=== PATIENT | female | born 1960 | race Caucasian/White ===

== ENCOUNTER 2021-01-09 14:36 | Emergency (ER) | payer OTHER ==
[~2021-01-09] VITALS: Ht 162.6 cm; Wt 76.7 kg
[2021-01-09 14:48] VITALS: BP 136/71
[2021-01-09] MEDS ORDERED: KETOROLAC 60 MG/2 ML VIAL IM ONE (15:30)
--- NOTE | 2021-01-09 15:40 | NUR ---
60 YEAR OLD FEMALE COMPLAINS OF LEFT LEG PAIN X TODAY. PT STATES SHE HAD SURGERY ON LEG 3 WEEKS AGO AND FELL RECENTLY. PT AOX4, BREATHING EVEN AND UNLABORED, SKIN WARM AND DRY. BED IN LOWEST POSITION, LOCKED, BED RAIL UPX1. PMH - HTN, DM2, HLD ALLERGIES - NKA
[2021-01-09] MEDS ORDERED: NAPR-54 PO (16:09)
[2021-01-09] MEDS ORDERED: CEPH-588 PO (16:09)
[2021-01-09 16:29] VITALS: BP 136/71
--- NOTE | 2021-01-09 16:30 | NUR ---
Patient discharged with v/s stable. Written and verbal after care instructions about cellulitis, contusion given and explained. Patient alert, oriented and verbalized understanding of instructions. Ambulatory with steady gait. All questions addressed prior to discharge. ID band removed. Patient advised to follow up with PMD. Rx of keflex, naprosyn given. Patient educated on indication of medication including possible reaction and side effects. Opportunity to ask questions provided and answered.
== END 2021-01-09 16:30 | disposition home or self-care (01) ==
LOC: MED 14:36
DX: S80.12XA Contusion of left lower leg, initial encounter (principal); L03.116 Cellulitis of left lower limb; W19.XXXA Unspecified fall, initial encounter; Y93.89 Activity, other specified; Y92.89 Other specified places as the place of occurrence of the external cause; Y99.8 Other external cause status
CPT/HCPCS: 73590; 96372; 99283; J1885

== ENCOUNTER 2021-03-29 11:45 | Emergency (ER) | payer OTHER ==
[~2021-03-29] VITALS: Ht 167.6 cm; Wt 75.3 kg
[~2021-03-29 11:45] MED LIST: CEPH-588 PO; NAPR-54 PO
[2021-03-29 11:51] VITALS: BP 139/78
--- NOTE | 2021-03-29 11:55 | NUR ---
PT TO WAIT IN LOBBY.
[2021-03-29] MEDS ORDERED: NITROGLYCERIN 0.4 MG TAB SL STA (12:28)
[2021-03-29] MEDS ORDERED: SODIUM CHLORIDE FLUSH 10 ML SYR IVF STA (12:28)
[2021-03-29] MEDS ORDERED: NACL 0.9% 1,000 ML IV ONE (12:50)
[2021-03-29 12:54] LABS: BASOPHILS % (AUTO) 0.2 % (0.0-2.0); EOSINOPHILS # (AUTO) 0.2 K/uL (0-0.4); EOSINOPHILS % (AUTO) 2.8 % (0.0-4.0); HEMATOCRIT 36.4 % (36-48); HEMOGLOBIN 12.5 g/dL (12.0-16.0); LYMPHOCYTES # (AUTO) 1.3 K/uL (2.5-16.5); LYMPHOCYTES % (AUTO) 24.4 % (20.5-51.1); MEAN CORPUSCULAR HEMOGLOBIN 29 pg (27-31); MEAN CORPUSCULAR HGB CONC 35 g/dL (33-37); MEAN CORPUSCULAR VOLUME 85.1 fL (80-94); MONOCYTES # (AUTO) 0.6 K/uL (0.8-1.0); MONOCYTES % (AUTO) 11.7 % (1.7-9.3); NEUTROPHILS # (AUTO) 3.3 K/uL (1.8-7.7); NEUTROPHILS % (AUTO) 60.9 % (42.2-75.2); PLATELET COUNT (AUTO) 409 K/uL (140-450); RED BLOOD CELL COUNT(AUTO) 4.27 MIL/uL (4.20-5.40); RED CELL DISTRIBUTION WIDTH 13.8 % (11.6-13.7); WHITE BLOOD COUNT (AUTO) 5.5 K/uL (4.8-10.8)
[2021-03-29 13:14] LABS: ALBUMIN 2.9 g/dL (3.4-5.0); ANION GAP 10.9 (8-16); CARBON DIOXIDE 28.2 mmol/L (21-32); POTASSIUM 5.1 mmol/L (3.5-5.1); TOTAL BILIRUBIN 0.3 mg/dL (0.0-1.0)
--- NOTE | 2021-03-29 13:32 | NUR ---
VBG COLLECTED AND HANDED TO RT BEDSIDE
--- NOTE | 2021-03-29 13:49 | NUR ---
CRITICAL LAB VALUE: GLUCOSE 607 DR. COREA MADE AWARE
[2021-03-29] MEDS ORDERED: INSULIN REGULAR, HUMAN 100 UNIT/ML VIAL IV ONE (15:10)
[2021-03-29 16:45] VITALS: BP 117/65
--- NOTE | 2021-03-29 16:45 | NUR ---
Patient discharged with v/s stable. Written and verbal after care instructions ABOUT HYPERGLYCEMIA given and explained. Patient verbalized understanding. Ambulatory with steady gait. All questions addressed prior to discharge. Advised to follow up with PMD.
== END 2021-03-29 16:45 | disposition home or self-care (01) ==
LOC: MED 11:45
DX: E11.65 Type 2 diabetes mellitus with hyperglycemia (principal); M79.89 Other specified soft tissue disorders; I10 Essential (primary) hypertension; Z79.899 Other long term (current) drug therapy
CPT/HCPCS: 36415; 71045; 80053; 81002; 82803; 83036; 83735; 83880; 84484; 85025; 93005; 96361; 96374; 99285; J1815; J7030; Q0092

== ENCOUNTER 2021-03-31 09:20 | Emergency (ER) | payer OTHER ==
[~2021-03-31] VITALS: Ht 162.6 cm; Wt 73.9 kg
[2021-03-31 09:50] VITALS: BP 147/82
--- NOTE | 2021-03-31 10:12 | NUR ---
60/F BIB SELF WITH C/O HIGH BLOOD SUGAR. STATES SHE IS NOT COMPLIANT WITH HER DIABETES MEDICATION, AND HER BLOOD SUGAR WAS "TOO HIGH TO READ AT HOME." GENERAL WEAKNESS, LIGHT HEADNESS AND FATIGUE SINCE THIS MORNING. DENIES CP, FEVER OR CHILLS. PT STATED LAST NIGHT SHE FELT FINE AND WOKE UP FEELING ILL THIS AM. BREATH SOUNDS CLEAR BILATERALLY WITH UNLABORED RESPIRATIONS AND EQUAL CHEST RISE AND FALL. MEDHX: DM, HTN, CHOLESTEROL ALLERGIES: PENICILLINS, SULFA, RESPERIDOL,CYMBALTA
[2021-03-31] MEDS ORDERED: NACL 0.9% 1,000 ML IV ONE (10:20)
--- NOTE | 2021-03-31 10:24 | NUR ---
20 G IV ESTABLISHED IN L AC. BLOOD WORK COLLECTED FROM IV
--- NOTE | 2021-03-31 10:27 | NUR ---
PT PROVIDED WITH URINE CUP. PT AMBUALTED TO RESTROOM
--- NOTE | 2021-03-31 10:38 | NUR ---
URINE COLLECTED BEDSIDE AND HANDED TO PERSONAL PROTECTION SPECIALIST MAREK
[2021-03-31 11:00] LABS: BASOPHILS % (AUTO) 0.4 % (0.0-2.0); EOSINOPHILS # (AUTO) 0.2 K/uL (0-0.4); EOSINOPHILS % (AUTO) 2.8 % (0.0-4.0); HEMATOCRIT 35.8 % (36-48); HEMOGLOBIN 12.2 g/dL (12.0-16.0); LYMPHOCYTES # (AUTO) 1.3 K/uL (2.5-16.5); LYMPHOCYTES % (AUTO) 23.4 % (20.5-51.1); MEAN CORPUSCULAR HEMOGLOBIN 29 pg (27-31); MEAN CORPUSCULAR HGB CONC 34 g/dL (33-37); MEAN CORPUSCULAR VOLUME 85.4 fL (80-94); MONOCYTES # (AUTO) 0.5 K/uL (0.8-1.0); NEUTROPHILS # (AUTO) 3.8 K/uL (1.8-7.7); NEUTROPHILS % (AUTO) 65.4 % (42.2-75.2); PLATELET COUNT (AUTO) 441 K/uL (140-450); RED BLOOD CELL COUNT(AUTO) 4.19 MIL/uL (4.20-5.40); RED CELL DISTRIBUTION WIDTH 13.8 % (11.6-13.7); WHITE BLOOD COUNT (AUTO) 5.7 K/uL (4.8-10.8)
[2021-03-31 11:02] LABS: ALBUMIN 2.6 g/dL (3.4-5.0); ANION GAP 15.2 (8-16); CARBON DIOXIDE 24.6 mmol/L (21-32); CREATININE 0.8 mg/dL (0.6-1.3); POTASSIUM 4.8 mmol/L (3.5-5.1); TOTAL BILIRUBIN 0.1 mg/dL (0.0-1.0)
[2021-03-31 11:23] LABS: APPEARANCE,URINE CLEAR (CLEAR); BILIRUBIN,URINE NEGATIVE (NEGATIVE); BLOOD, URINE NEGATIVE (NEGATIVE); COLOR,URINE YELLOW (YELLOW); LEUKOCYTE ESTERASE ,URINE NEGATIVE (NEGATIVE); NITRITE, URINE NEGATIVE (NEGATIVE); PH,URINE 5.5 (5.0-9.0); UGLUCOSE 2+ (NEGATIVE)
--- NOTE | 2021-03-31 11:40 | NUR ---
Patient appears to be resting comfortably in bed WITH EYES OPEN. Vital Signs within normal limits AND CHARTED. Respirations even and unlabored.
[2021-03-31] MEDS ORDERED: INSULIN REGULAR, HUMAN 100 UNIT/ML VIAL SUBQ ONE (11:45)
--- NOTE | 2021-03-31 11:50 | NUR ---
dr. herrera bedside evaluating pt
[2021-03-31] MEDS ORDERED: INSULIN REGULAR, HUMAN 100 UNIT/ML VIAL IVP ONE (12:15)
--- NOTE | 2021-03-31 13:04 | NUR ---
Patient appears to be resting comfortably in bed AND TALKING ON PHONE. Vital Signs within normal limits AND CHARTED. Respirations even and unlabored.
[2021-03-31 13:41] VITALS: BP 113/59
--- NOTE | 2021-03-31 13:41 | NUR ---
Patient discharged with v/s stable. Written and verbal after care instructions given and explained. Patient verbalized understanding. Ambulatory with steady gait. All questions addressed prior to discharge. Advised to follow up with PMD.
== END 2021-03-31 13:39 | disposition home or self-care (01) ==
LOC: MED 09:20
DX: E11.65 Type 2 diabetes mellitus with hyperglycemia (principal); R11.2 Nausea with vomiting, unspecified; I10 Essential (primary) hypertension; F15.90 Other stimulant use, unspecified, uncomplicated; F17.200 Nicotine dependence, unspecified, uncomplicated; Z88.0 Allergy status to penicillin; Z88.8 Allergy status to other drugs, medicaments and biological substances; Z79.899 Other long term (current) drug therapy; Z98.890 Other specified postprocedural states
CPT/HCPCS: 36415; 80053; 81003; 84484; 85025; 96361; 96374; 99283; J1815; J7030; 93005

== ENCOUNTER 2021-09-07 05:38 | Observation (INO) | payer OTHER ==
[~2021-09-07] VITALS: Ht 162.6 cm; Wt 73.9 kg
[2021-09-07 05:42] VITALS: BP 136/79
--- NOTE | 2021-09-07 05:42 | NUR ---
Dr. Aquino at triage to exam patient.
[2021-09-07] MEDS ORDERED: NACL 0.9% 1,000 ML IV ONE (05:45)
[2021-09-07] MEDS ORDERED: ONDANSETRON 4 MG/2 ML VIAL IVP ONE (05:45)
--- NOTE | 2021-09-07 05:47 | NUR ---
Patient ambulated to bed 11.
--- NOTE | 2021-09-07 05:49 | NUR ---
61 YO/F BIB SELF W C/O N/V/D X1 WEEK, +L SIDED CHEST PAIN TIGHTNESS 7/10 INTERMITENT X1 DAY,+ EPIGASTRIC PAIN AND DIZZYNESS. PT REPORTS SOB WHICH SHE RELATES TO HX OF SMOKING AND REPORTS IT IS NOT NEW. PT DENIES FEVERS, BLOOD IN STOOL OR EMESIS. PT LAYING IN BED LOCKED IN LOWEST POSITION, X1 SIDERAIL UP. BREATHING EVEN AND UNLABORED. PLACED IN GOWN, CONNECTED TO MONITOR W VSS. PMH:DIABETES, HTN, HIGH CHOLESTEROL ALLERGIES: SULFA, PENICILLIN, RISPERIDONE, DULOXETINE
[2021-09-07] MEDS ORDERED: LEVOFLOXACIN 500 MG/D5W PREMIX 100 ML IV ONE (05:55)
[2021-09-07 06:01] LABS: BASOPHILS % (AUTO) 0.5 % (0.0-2.0); EOSINOPHILS # (AUTO) 0.1 K/uL (0-0.4); EOSINOPHILS % (AUTO) 1.3 % (0.0-4.0); HEMOGLOBIN 14.4 g/dL (12.0-16.0); LYMPHOCYTES # (AUTO) 2.3 K/uL (2.5-16.5); LYMPHOCYTES % (AUTO) 33.5 % (20.5-51.1); MEAN CORPUSCULAR HEMOGLOBIN 29 pg (27-31); MEAN CORPUSCULAR HGB CONC 34 g/dL (33-37); MEAN CORPUSCULAR VOLUME 85.9 fL (80-94); MONOCYTES # (AUTO) 0.9 K/uL (0.8-1.0); MONOCYTES % (AUTO) 13.6 % (1.7-9.3); NEUTROPHILS # (AUTO) 3.6 K/uL (1.8-7.7); NEUTROPHILS % (AUTO) 51.1 % (42.2-75.2); PLATELET COUNT (AUTO) 444 K/uL (140-450); RED BLOOD CELL COUNT(AUTO) 5.01 MIL/uL (4.20-5.40); RED CELL DISTRIBUTION WIDTH 13.5 % (11.6-13.7)
[2021-09-07 06:22] LABS: ALBUMIN 3.8 g/dL (3.4-5.0); CARBON DIOXIDE 24.5 mmol/L (21-32); POTASSIUM 3.5 mmol/L (3.5-5.1); TOTAL BILIRUBIN 0.4 mg/dL (0.0-1.0)
--- NOTE | 2021-09-07 06:23 | NUR ---
Dr. Moscoso examining patient.
--- NOTE | 2021-09-07 06:39 | NUR ---
PT TAKEN TO CT
[2021-09-07] MEDS ORDERED: NACL 0.9% 1,500 ML IV ONE (06:40)
--- NOTE | 2021-09-07 06:42 | NUR ---
Med chand in [facility] - 09/07/21 at [address] PT [address] VIA WHEELCHAIR.
--- NOTE | 2021-09-07 06:57 | NUR ---
COVID-19 swabs collected and sent to lab.
[2021-09-07] MEDS ORDERED: OMEP40EC23 PO (07:10)
[2021-09-07] MEDS ORDERED: MAG (07:10)
[2021-09-07] MEDS ORDERED: VENL-151 PO (07:10)
[2021-09-07] MEDS ORDERED: SEMA0.25 SQ (07:10)
[2021-09-07] MEDS ORDERED: DIVA500T1 PO (07:10)
[2021-09-07] MEDS ORDERED: ATOR40TA PO (07:10)
[2021-09-07] MEDS ORDERED: FURO-572 PO (07:10)
[2021-09-07] MEDS ORDERED: INSU100S22 SC (07:10)
[2021-09-07] MEDS ORDERED: METF-1253 PO (07:10)
[2021-09-07] MEDS ORDERED: MAGNESIUM OXIDE (07:10)
[2021-09-07] MEDS ORDERED: LISI-487 PO (07:10)
[2021-09-07] MEDS ORDERED: INSU100S45 SUBQ (07:10)
--- NOTE | 2021-09-07 07:12 | NUR ---
Pt report given to SHELBY GARZA. Transfer of care at this time.
--- NOTE | 2021-09-07 07:30 | NUR ---
received pt in [facility] aox4. denies pain or discomfort. iv infusing fluids per order. nsr on monitor. pending admission. nad. safety maintained.
[2021-09-07] MEDS ORDERED: guaiFENesin DM 200/20 MG-10 ML 10 ML UDC PO PRN (08:25)
[2021-09-07] MEDS ORDERED: POTASSIUM CHLORIDE 10 MEQ TABER PO PRN (08:25)
[2021-09-07] MEDS ORDERED: ZOLPIDEM 5 MG TAB PO PRN (08:25)
[2021-09-07] MEDS ORDERED: HYDROcodone/APAP 7.5/325 MG 1 TAB PO PRN (08:25)
[2021-09-07] MEDS ORDERED: ONDANSETRON 4 MG/2 ML VIAL IM/IVP PRN (08:25)
[2021-09-07] MEDS ORDERED: DOCUSATE SODIUM 100 MG GELCAP PO PRN (08:25)
[2021-09-07] MEDS ORDERED: ACETAMINOPHEN 325 MG TAB PO PRN (08:25)
[2021-09-07] MEDS: DEXT 5% /NACL 0.9% 1,000 ML IV SCH ×4 (08:31→18:57)
[2021-09-07 08:56] LABS: AMYLASE 72 U/L (25-115); CHOL/HDL RATIO 3.6 (1-4.5); FREE T4 (FREE THYROXINE) 1.15 ng/dL (0.76-1.46); HDL CHOLESTEROL 50 mg/dL (40-60); LDL (CALC) 84 mg/dL (60-100); LIPASE 242 U/L (73-393); MAGNESIUM 1.3 mg/dL (1.8-2.4); PHOSPHORUS 4.5 mg/dL (2.5-4.9); TRIGLYCERIDES 243 mg/dL (30-150)
--- NOTE | 2021-09-07 08:56 | NUR ---
PATIENT HAS BEEN SCREENED AND CATEGORIZED HIGH NUTRITION RISK. PATIENT WILL BE SEEN WITHIN 1-2 DAYS OF ADMISSION. / J[address]
[2021-09-07 09:03] VITALS: BP 117/60
[2021-09-07 09:06] LABS: PROTHROMBIN TIME 9.7 secs (10.8-13.4)
--- NOTE | 2021-09-07 09:10 | NUR ---
patient ransported from er via gurney accompanied by nurse, bedside report received, patient alert and oriented, reports vomiting and diarrhea x 1 week, admitted with dx of dehydration, able to ambulate independently, lung sounds clear, no sob observed, no c/o pain or discomfort, will assume all care
[2021-09-07 09:21] LABS: THYROID STIMULATING HORMONE 2.42 uIU/mL (0.34-3.74)
[2021-09-07] MEDS: PANTOPRAZOLE 40 MG TABEC PO SCH (09:48)
--- NOTE | 2021-09-07 11:00 | NUR ---
blood sugar 186, routine lantus administered per emar
[2021-09-07] MEDS ORDERED: LOPERAMIDE 2 MG CAP PO PRN (11:35)
[2021-09-07 12:00] VITALS: BP 122/78
[2021-09-07] MEDS: MAGNESIUM OXIDE 400 MG TAB PO SCH (12:28)
[2021-09-07] MEDS: INSULIN LANTUS 100 UNITS/ML 10 ML VIAL SUBQ SCH (12:29)
--- NOTE | 2021-09-07 12:41 | NUR ---
DC PLANNING: RECEIVED A CALL FROM [facility] CM [phone] [phone] SPOKE WITH JAYA, UPDATED HER PT'S CLINICAL, PER JAYA PATIENT HAS A TEAM TO F/U WITH HER PSYCH DISORDER AND SHE PROVIDED THE OBSERVATION AUTH# [id number] CM TO FOLLOW
[2021-09-07 16:00] VITALS: BP 125/68
[2021-09-07] MEDS: metFORMIN 500 MG TAB PO SCH (17:37)
--- NOTE | 2021-09-07 18:06 | NUR ---
patient resting comfortably in bed, no c/o pain at this time, will endorse care to pm nurse
[2021-09-07 20:00] VITALS: BP 122/60
--- NOTE | 2021-09-07 20:00 | NUR ---
PT WALKS IN THE HALLWAY - WHEN I'M ASKING IF SHE NEEDED ANYTHING - SHE SAID SHE WANTS SOMETHING TO EAT . ASSIST PT GO BACK TO ROOM AND WILL PROVIDE FOOD .
[2021-09-07] MEDS ORDERED: NON-FORMULARY ITEM (Metformin HCl (Metformin Hcl) 1 TAB) PO SCH (21:00)
[2021-09-07] MEDS: NIACIN 500 MG TAB PO SCH (21:34)
--- NOTE | 2021-09-08 | NUR ---
MADE ROUNDS , NO COMPLAIN MADE .
[2021-09-08 04:00] VITALS: BP 125/60
--- NOTE | 2021-09-08 04:00 | NUR ---
ROUNDS , NO COMPLAIN MADE
[2021-09-08 04:28] LABS: APPEARANCE,URINE CLEAR (CLEAR); BILIRUBIN,URINE NEGATIVE (NEGATIVE); BLOOD, URINE NEGATIVE (NEGATIVE); COLOR,URINE YELLOW (YELLOW); LEUKOCYTE ESTERASE ,URINE NEGATIVE (NEGATIVE); NITRITE, URINE NEGATIVE (NEGATIVE); UGLUCOSE NEGATIVE (NEGATIVE)
[2021-09-08 04:48] LABS: BARBITURATE, URINE NEGATIVE ng/ml (NEG <=200); BENZODIAZEPINE, URINE NEGATIVE ng/mL (NEG <=200); CANNABINOID, URINE NEGATIVE ng/mL (NEG <=50); COCAINE, URINE NEGATIVE ng/mL (NEG <=300); PHENCYCLIDINE SCREEN,URINE NEGATIVE ng/mL (NEG <=25)
[2021-09-08 04:49] LABS: OPIATE, URINE POSITIVE ng/mL (NEG <=2000)
--- NOTE | 2021-09-08 06:00 | NUR ---
ROUNDS , SLEEPING , BUT EASILY AWAKEABLE BY SOUNDS , CALL LIGHT WITHIN REACH .
[2021-09-08 07:04] LABS: BASOPHILS % (AUTO) 0.5 % (0.0-2.0); EOSINOPHILS # (AUTO) 0.1 K/uL (0-0.4); EOSINOPHILS % (AUTO) 3.1 % (0.0-4.0); HEMATOCRIT 34.3 % (36-48); HEMOGLOBIN 11.6 g/dL (12.0-16.0); LYMPHOCYTES # (AUTO) 1.1 K/uL (2.5-16.5); LYMPHOCYTES % (AUTO) 32.8 % (20.5-51.1); MEAN CORPUSCULAR HEMOGLOBIN 29 pg (27-31); MEAN CORPUSCULAR HGB CONC 34 g/dL (33-37); MEAN CORPUSCULAR VOLUME 85.1 fL (80-94); MONOCYTES # (AUTO) 0.6 K/uL (0.8-1.0); MONOCYTES % (AUTO) 16.9 % (1.7-9.3); NEUTROPHILS # (AUTO) 1.6 K/uL (1.8-7.7); NEUTROPHILS % (AUTO) 46.7 % (42.2-75.2); PLATELET COUNT (AUTO) 295 K/uL (140-450); RED BLOOD CELL COUNT(AUTO) 4.03 MIL/uL (4.20-5.40); RED CELL DISTRIBUTION WIDTH 13.3 % (11.6-13.7); WHITE BLOOD COUNT (AUTO) 3.5 K/uL (4.8-10.8)
--- NOTE | 2021-09-08 07:10 | NUR ---
ENDORSED -PT STABLE . ENDORSED PT IS FOR 24 HR URINE COLLECTION - IT STARTED AT 0404AM . NYA HALL VERBALIZES UNDERSTANDING - AND I TOLD THEM TO REMIND THE DR DURING ROUNDS ABOUT THE U/A RESULT . NYA PATEL - REVIEWED THE DOCTOR'S ORDER - NO BS MONITORING - WILL REFER TO DR. BOWSER . Addendum: 09/08/21 at 0813 by Christie Nunez RN REFERRED TO DR. BOWSER ABOUT BS MONITORING VIA TEXT - I TOLD TO NYA TEJADA SHE HAVE TO FF UP IT IF DR. BOWSER MADE FURTHER ORDERS - NYA TEJADA VERBALIZES UNDERSTANDING
--- NOTE | 2021-09-08 07:10 | NUR ---
RECEIVED PT FROM BOTTLE SORTER NURSE FOR CONTINUITY OF CARE. PT IS IN BED, SLEEPING EASILY AROUSABLE BY VERBAL STIMULI. BREATHING EVEN AND UNLABORED AT ROOM AIR. NO SIGNS OF DISTRESS. PT IS A&O4. SKIN IS INTACT, DRY AND WARM TO TOUCH. IV SITE L-WRIST 20G INFUSING NS 60ML/HR. PT ON CLEAR LIQUID DIET. TO CONTINUE 24-HR URINE COLLECTION, TO COLLECT STOOL SAMPLE. INFORMED PT, PROVIDED SUPPLIES. PT VERBALIZES UNDERSTANDING. CALL LIGHT WITHIN REACH. SAFETY PRECAUTIONS IN PLACE. WILL CONTINUE TO MONITOR.
[2021-09-08 07:26] LABS: ANION GAP 12.3 (8-16); CARBON DIOXIDE 25.2 mmol/L (21-32); CREATININE 0.7 mg/dL (0.6-1.3); POTASSIUM 3.5 mmol/L (3.5-5.1)
[2021-09-08] MEDS ORDERED: INSULIN LISPRO SLIDING SCALE 100 UNITS/ML VIAL SUBQ PRN (07:45)
[2021-09-08] MEDS ORDERED: DEXTROSE 50% 50 ML SYR IVP PRN (07:45)
[2021-09-08 08:08] LABS: T4 (THYROXINE) 12.2 ug/dL (4.5-12.0)
[2021-09-08] MEDS: metFORMIN 500 MG TAB PO SCH (08:44)
[2021-09-08] MEDS: PANTOPRAZOLE 40 MG TABEC PO SCH (08:47)
[2021-09-08] MEDS: NIACIN 500 MG TAB PO SCH (08:47)
[2021-09-08] MEDS: MAGNESIUM OXIDE 400 MG TAB PO SCH (08:50)
--- NOTE | 2021-09-08 08:51 | NUR ---
PATIENT ALERT NO DISTRESS ATE BREAKFAST. GIVEN ALL DUE MEDICATION. CALM AND COOPERATIVE AT THIS TIME.
[2021-09-08] MEDS: INSULIN LANTUS 100 UNITS/ML 10 ML VIAL SUBQ SCH (08:53)
[2021-09-08] MEDS ORDERED: FUROSEMIDE 20 MG TAB PO SCH (09:00)
[2021-09-08] MEDS ORDERED: lisinopriL 20 MG TAB PO SCH (09:00)
[2021-09-08] MEDS ORDERED: VENLAFAXINE XR 75 MG CAPER PO SCH (09:00)
[2021-09-08] MEDS ORDERED: ATORVASTATIN 20 MG TAB PO SCH (09:00)
[2021-09-08] MEDS ORDERED: NON-FORMULARY ITEM (Omeprazole* (Prilosec*) 40 MG) PO SCH (09:00)
[2021-09-08] MEDS ORDERED: DIVALPROEX 500 MG TABER PO SCH (09:00)
[2021-09-08] MEDS ORDERED: [UNRECOGNIZED DRUG - CODE] PO (09:02)
[2021-09-08] MEDS ORDERED: LEVO-315 PO (09:02)
[2021-09-08] MEDS ORDERED: LOPE1TAB14 PO (09:04)
[2021-09-08] MEDS: DEXT 5% /NACL 0.9% 1,000 ML IV SCH (09:15)
--- NOTE | 2021-09-08 10:30 | NUR ---
INFORM PATIENT THAT SHE HAS DISCHARGE ORDER. PATIENT REQUESTED FOR SNACKS GIVEN REQUESTED. NO NAUSEA OR VOMITING NOTED. IV RUNNING AT 60 ML /HOUR TOLERATED WELL.
[2021-09-08 11:04] VITALS: BP 136/76
[2021-09-08] MEDS ORDERED: BLOOD GLUCOSE MONITORING 1 DEV DEV FS SCH (11:30)
--- NOTE | 2021-09-08 11:30 | NUR ---
PT IS IN BED DRESSED UP, READY TO GO HOME. DISCHARGE PAPER DISCUSSED WITH THE PT. PT ASKED QUESTIONS. EXPLAINED BRIEFLY WHAT'S ON THE DISCHARGE PAPER. PT VERBALIZED UNDERSTANDING. REMOVED IV CATHETER IS INTACT. ID WRIST BAND REMOVED. ALL BELONGINGS WITH THE PT UPON DC. PT IS ALERT WITH STEADY GAIT. WALKED OUT THE UNIT STABLE. REFUSED TO BE ACCOMPANIED OUTSIDE.
[2021-09-09] MEDS ORDERED: LEVOFLOXACIN 750 MG/D5W PREMIX 150 ML IV SCH (09:00)
== END 2021-09-08 11:30 | disposition home or self-care (01) ==
LOC: MED 05:38 → MTU 08:18
PROVIDERS: ADMIT Family Medicine; ATTEND Family Medicine
DX: K92.9 Disease of digestive system, unspecified (principal); Z20.822 Contact with and (suspected) exposure to COVID-19; R19.7 Diarrhea, unspecified; R11.2 Nausea with vomiting, unspecified; R79.89 Other specified abnormal findings of blood chemistry; E86.0 Dehydration; E78.5 Hyperlipidemia, unspecified; F31.81 Bipolar II disorder; R74.02 Elevation of levels of lactic acid dehydrogenase [LDH]; I12.9 Hypertensive chronic kidney disease with stage 1 through stage 4 chronic kidney disease, or unspecified chronic kidney disease; E11.22 Type 2 diabetes mellitus with diabetic chronic kidney disease; N18.9 Chronic kidney disease, unspecified; N17.0 Acute kidney failure with tubular necrosis; E78.00 Pure hypercholesterolemia, unspecified; Z87.891 Personal history of nicotine dependence; Z88.0 Allergy status to penicillin; Z79.899 Other long term (current) drug therapy
CPT/HCPCS: 36415; 71045; 74176; 76770; 80048; 80053; 80061; 80305; 81003; 82150; 82948; 83036; 83605; 83690; 83735; 83880; 84100; 84436; 84439; 84443; 84479; 84484; 85025; 85610; 85730; 87040; 87081; 87426; 96361; 96365; 96375; 99284; G0378; J1815; J1956; J2405; J7030; Q0092

== ENCOUNTER 2021-12-22 12:01 | Emergency (ER) | payer OTHER ==
[~2021-12-22] VITALS: Ht 162.6 cm; Wt 67.1 kg
[~2021-12-22 12:01] MED LIST changes: +ATOR40TA PO; -CEPH-588 PO; +DIVA500T1 PO; +FURO-572 PO; +INSU100S22 SC; +INSU100S45 SUBQ; +LEVO-315 PO; +LISI-487 PO; +LOPE1TAB14 PO; +MAG; +MAGNESIUM OXIDE; +METF-1253 PO; -NAPR-54 PO; +OMEP40EC23 PO; +SEMA0.25 SQ; +VENL-151 PO; +[UNRECOGNIZED DRUG - CODE] PO
[2021-12-22 12:22] VITALS: BP 97/62
--- NOTE | 2021-12-22 12:29 | NUR ---
PT TO LOBBY. Addendum: 12/22/21 at 1229 by [email or web address] IN W/C.
--- NOTE | 2021-12-22 12:31 | NUR ---
61 Y/O FEMALE C/O PELVIC PAIN X1DAY WITH WEAKNESS AND DIZZINESS. ACCUE CHECK 186 AT TRIAGE. STATES +N/V/D. DENIES FEVER/CHILLS. PMH:DIABETES, HTN, HIGH CHOLESTEROL ALLERGIES: SULFA, PENICILLIN, RISPERIDONE, DULOXETINE
--- NOTE | 2021-12-22 12:31 | NUR ---
PT STATES SHE IS UNABLE TO PROVIDE UA AT THIS TIME.
[2021-12-22 14:35] LABS: ALBUMIN 3.4 g/dL (3.4-5.0); ANION GAP 16.4 (8-16); ASPARTATE AMINOTRANSFERASE 13 U/L (15-37); CARBON DIOXIDE 27.4 mmol/L (21-32); CHLORIDE 98 mmol/L (98-107); GFR ARICAN-AMERICAN 72 mL/min (>90); GLUCOSE 170 mg/dL (74-106); LIPASE 477 U/L (73-393); MAGNESIUM 1.1 mg/dL (1.8-2.4); POTASSIUM 3.8 mmol/L (3.5-5.1); SODIUM SERUM 138 mmol/L (136-145); TOTAL BILIRUBIN 0.4 mg/dL (0.0-1.0); UREA NITROGEN, BLOOD 20 mg/dL (7-18)
[2021-12-22 15:48] LABS: BASOPHILS # (AUTO) 0.1 K/uL (0.00-0.22); BASOPHILS % (AUTO) 0.4 % (0.0-2.0); EOSINOPHILS # (AUTO) 0.1 K/uL (0-0.4); EOSINOPHILS % (AUTO) 0.6 % (0.0-4.0); HEMATOCRIT 43.2 % (36-48); HEMOGLOBIN 14.2 g/dL (12.0-16.0); LYMPHOCYTES # (AUTO) 1.2 K/uL (2.5-16.5); LYMPHOCYTES % (AUTO) 8.2 % (20.5-51.1); MEAN CORPUSCULAR HEMOGLOBIN 27 pg (27-31); MEAN CORPUSCULAR HGB CONC 33 g/dL (33-37); MEAN CORPUSCULAR VOLUME 83.2 fL (80-94); MONOCYTES # (AUTO) 0.6 K/uL (0.8-1.0); MONOCYTES % (AUTO) 3.7 % (1.7-9.3); NEUTROPHILS # (AUTO) 13.1 K/uL (1.8-7.7); NEUTROPHILS % (AUTO) 87.1 % (42.2-75.2); PLATELET COUNT (AUTO) 631 K/uL (140-450); RED BLOOD CELL COUNT(AUTO) 5.19 MIL/uL (4.20-5.40); RED CELL DISTRIBUTION WIDTH 13.9 % (11.6-13.7)
--- NOTE | 2021-12-22 19:42 | NUR ---
PATIENT ELOPED FROM FACILITY. DISCHARGE INSTRUCTIONS NOT GIVEN TO PATIENT. DR. GRAY NOTIFIED.
== END 2021-12-22 19:42 | disposition left against medical advice (07) ==
LOC: MED 12:01
DX: C80.0 Disseminated malignant neoplasm, unspecified (principal); E83.52 Hypercalcemia; E83.42 Hypomagnesemia; E78.5 Hyperlipidemia, unspecified; D72.829 Elevated white blood cell count, unspecified; D75.839 Thrombocytosis, unspecified; E11.9 Type 2 diabetes mellitus without complications; I10 Essential (primary) hypertension; F17.290 Nicotine dependence, other tobacco product, uncomplicated; Z79.899 Other long term (current) drug therapy; Z79.4 Long term (current) use of insulin; Z88.0 Allergy status to penicillin; Z88.8 Allergy status to other drugs, medicaments and biological substances; Z98.890 Other specified postprocedural states
CPT/HCPCS: 36415; 80053; 82948; 83690; 83735; 84484; 85025; 93005; 99285

== ENCOUNTER 2021-12-25 12:27 | Emergency (ER) | payer OTHER ==
[~2021-12-25] VITALS: Ht 162.6 cm; Wt 67.6 kg
[2021-12-25 12:41] VITALS: BP 122/65
--- NOTE | 2021-12-25 12:46 | NUR ---
pt to sivakumar britt
--- NOTE | 2021-12-25 14:47 | NUR ---
AURY SAMPLE OBTAINED, HANDED TO CPT SUSHMA AT BEDSIDE.
--- NOTE | 2021-12-25 15:16 | NUR ---
UA SENT TO LAB
[2021-12-25 15:28] LABS: APPEARANCE,URINE CLEAR (CLEAR); BILIRUBIN,URINE NEGATIVE (NEGATIVE); BLOOD, URINE NEGATIVE (NEGATIVE); COLOR,URINE BROWN (YELLOW); LEUKOCYTE ESTERASE ,URINE NEGATIVE (NEGATIVE); NITRITE, URINE NEGATIVE (NEGATIVE); UGLUCOSE NEGATIVE (NEGATIVE)
--- NOTE | 2021-12-25 16:25 | NUR ---
Dr. Gomez re-evaluating patient at bedside.
[2021-12-25 17:00] VITALS: BP 120/67
--- NOTE | 2021-12-25 19:15 | NUR ---
REPORT GIVEN TO SHELBY MAHMOOD FOR TRANSFER OF CARE.
--- NOTE | 2021-12-25 21:55 | NUR ---
WALKED INTO NURSES STATION AND SAID "I'M LEAVING" WALKED OUT OF ER
[2021-12-26] MEDS ORDERED: FAMO-92 PO (12:28)
== END 2021-12-25 21:55 | disposition left against medical advice (07) ==
LOC: MED 12:27
DX: C80.0 Disseminated malignant neoplasm, unspecified (principal); Z20.822 Contact with and (suspected) exposure to COVID-19; R10.9 Unspecified abdominal pain; E11.9 Type 2 diabetes mellitus without complications; I10 Essential (primary) hypertension; E78.00 Pure hypercholesterolemia, unspecified; Z79.4 Long term (current) use of insulin; Z79.899 Other long term (current) drug therapy; Z88.0 Allergy status to penicillin; Z88.2 Allergy status to sulfonamides; Z88.8 Allergy status to other drugs, medicaments and biological substances; Z88.5 Allergy status to narcotic agent
CPT/HCPCS: 81003; 99285

== ENCOUNTER 2021-12-26 10:38 | Emergency (ER) | payer OTHER ==
[~2021-12-26] VITALS: Ht 162.6 cm; Wt 67.6 kg
[2021-12-26 10:49] VITALS: BP 139/81
--- NOTE | 2021-12-26 11:50 | NUR ---
PT AMBULATED WITH STEADY GAIT TO BED12
--- NOTE | 2021-12-26 12:20 | NUR ---
61 Y/O FEMALE C/O DIZZY SPELLS X2 THAT STARTED LAST NIGHT. DENIES HEADACHE, VISUAL CHANGES, PAIN, FEVER, NVD. DENIES TAKING NEW MEDICATION. STATES SHE WAS SEEN AT [facility] YESTERDAY AND BECAME "IMPATIENT AND LEFT AMA". STATES SHE HAS AN APPT WITH PCP FOR FURTHER EVALUATION ON THE , TRUSS DESIGNER STATED APPT IS TOO LATE AND SUGGESTED PT RETURN TO ER FOR A RECHECK.
--- NOTE | 2021-12-26 12:23 | NUR ---
RAUL THIBODEAUX AT BEDSIDE FOR EVALUATION
[2021-12-26] MEDS ORDERED: FAMO-92 PO (12:28)
[2021-12-26 12:35] VITALS: BP 130/75
== END 2021-12-26 12:35 | disposition home or self-care (01) ==
LOC: MED 10:38
DX: K21.9 Gastro-esophageal reflux disease without esophagitis (principal); E11.9 Type 2 diabetes mellitus without complications; E78.00 Pure hypercholesterolemia, unspecified; I10 Essential (primary) hypertension; Z79.4 Long term (current) use of insulin; Z79.899 Other long term (current) drug therapy; Z88.0 Allergy status to penicillin; Z88.2 Allergy status to sulfonamides; Z88.8 Allergy status to other drugs, medicaments and biological substances; Z88.5 Allergy status to narcotic agent
CPT/HCPCS: 99281

== ENCOUNTER 2022-04-18 12:46 | Inpatient (IN) | payer OTHER, MEDICAID ==
[~2022-04-18] VITALS: Ht 162.6 cm; Wt 58.5 kg
[~2022-04-18 12:46] MED LIST changes: +FAMO-92 PO; -LEVO-315 PO; +LEVO-481 PO
--- NOTE | 2022-04-18 12:48 | NUR ---
BRIGITTE ALS TO ER BED 9
--- NOTE | 2022-04-18 12:55 | NUR ---
COVID SWAB COLLECTED
[2022-04-18 13:00] VITALS: BP 108/57
--- NOTE | 2022-04-18 13:05 | NUR ---
61F BIBA from home presents with c/o dizziness, n/v/d, weakness, abd pain x2days. Pt reports symptoms have worsened in the last two days, unable to support own bodyweight to ambulate. Pt reports having 3 episodes of diarrhea today, LLQ ABD pain only when needing to have a BM, and relieved after BM. Pt reports no episodes of vomiting today. Pt states she was given zofran for nausea by EMS with relief. Upon assessment, denies ABD pain, denies nausea. Pt changed into gown and placed on bedside monitor.
[2022-04-18] MEDS ORDERED: NACL 0.9% 1,000 ML IV ONE ×2 (13:20→22:40)
[2022-04-18 14:02] LABS: BASOPHILS # (AUTO) 0.1 K/uL (0.00-0.22); BASOPHILS % (AUTO) 0.6 % (0.0-2.0); EOSINOPHILS # (AUTO) 0.1 K/uL (0-0.4); LYMPHOCYTES # (AUTO) 0.5 K/uL (2.5-16.5); MONOCYTES # (AUTO) 0.1 K/uL (0.8-1.0); MONOCYTES % (AUTO) 0.6 % (1.7-9.3); NEUTROPHILS # (AUTO) 11.1 K/uL (1.8-7.7)
[2022-04-18 14:06] LABS: EOSINOPHILS % (AUTO) 0.5 % (0.0-4.0); LYMPHOCYTES % (AUTO) 4.5 % (20.5-51.1); MEAN CORPUSCULAR HEMOGLOBIN 25 pg (27-31); MEAN CORPUSCULAR HGB CONC 32 g/dL (33-37); MEAN CORPUSCULAR VOLUME 79.9 fL (80-94); NEUTROPHILS % (AUTO) 93.8 % (42.2-75.2); PLATELET COUNT (AUTO) 418 K/uL (140-450); WHITE BLOOD COUNT (AUTO) 11.9 K/uL (4.8-10.8)
[2022-04-18 14:13] LABS: ALBUMIN 2.1 g/dL (3.4-5.0); ANION GAP 14.7 (8-16); CARBON DIOXIDE 26.1 mmol/L (21-32); CREATININE 0.8 mg/dL (0.6-1.3); POTASSIUM 4.8 mmol/L (3.5-5.1); TOTAL BILIRUBIN 0.2 mg/dL (0.0-1.0)
[2022-04-18 14:18] LABS: PROTHROMBIN TIME 10.1 secs (10.8-13.4)
[2022-04-18 14:20] LABS: HEMATOCRIT 19.2 % (36-48); HEMOGLOBIN 6.1 g/dL (12.0-16.0)
[2022-04-18] MEDS ORDERED: PANTOPRAZOLE 40 MG INJ VIAL IVP ONE (15:30)
[2022-04-18] MEDS ORDERED: cefTRIAXone 1,000 MG VIAL ONE (15:50)
--- NOTE | 2022-04-18 19:29 | NUR ---
[facility] [phone] SISTER
--- NOTE | 2022-04-18 20:50 | NUR ---
Assisted patient to the restroom. UA collected. Gown changed and patient placed on a breif. Call light within reach. Currently resting with eyes closed.
[2022-04-18 21:49] LABS: APPEARANCE,URINE HAZY (CLEAR); BILIRUBIN,URINE NEGATIVE (NEGATIVE); BLOOD, URINE NEGATIVE (NEGATIVE); COLOR,URINE YELLOW (YELLOW); LEUKOCYTE ESTERASE ,URINE 2+ (NEGATIVE); NITRITE, URINE NEGATIVE (NEGATIVE); UGLUCOSE NEGATIVE (NEGATIVE)
[2022-04-18 22:05] LABS: HEMATOCRIT 19.2 % (36-48); HEMOGLOBIN 6.4 g/dL (12.0-16.0)
[2022-04-18 22:07] LABS: RBC,URINE NONE SEEN /HPF (0-5)
--- NOTE | 2022-04-18 22:20 | NUR ---
received critical lab. Hbg 6.4, Hct 19.2, ERMD Zeinab made aware. Stated to tranfuse second unit of blood. Blood tranfusion initiated. See blood transfer paperwork for details. patient tolerated well.
--- NOTE | 2022-04-19 04:30 | NUR ---
PATIENT CHANGED AND REPOSITIONED. PATIENT AAOX4.
[2022-04-19] MEDS ORDERED: PANTOPRAZOLE 40 MG INJ VIAL IVP SCH (05:00)
--- NOTE | 2022-04-19 05:53 | NUR ---
SPOKE TO PT SISTER JOHANN AND GAVE UPDATE ON PATIENTS STATUS. WOULD LIKE TO BE INFORMED WHEN TRANSPORTATION IS SCHEDULED.
--- NOTE | 2022-04-19 07:15 | NUR ---
Received report from SHELBY Das. Assumed care at this time.
--- NOTE | 2022-04-19 07:15 | NUR ---
REPORT GIVEN TO SHELBY MCLAUGHLIN. TRANSFER OF CARE.
--- NOTE | 2022-04-19 11:47 | NUR ---
Pt resting in [place], no acute distress noted. Safety maintained.
[2022-04-19 12:08] LABS: BASOPHILS % (AUTO) 0.7 % (0.0-2.0); EOSINOPHILS # (AUTO) 0.1 K/uL (0-0.4); EOSINOPHILS % (AUTO) 1.1 % (0.0-4.0); HEMATOCRIT 26.4 % (36-48); HEMOGLOBIN 8.7 g/dL (12.0-16.0); LYMPHOCYTES # (AUTO) 0.6 K/uL (2.5-16.5); LYMPHOCYTES % (AUTO) 11.5 % (20.5-51.1); MEAN CORPUSCULAR HEMOGLOBIN 26 pg (27-31); MEAN CORPUSCULAR HGB CONC 33 g/dL (33-37); MEAN CORPUSCULAR VOLUME 78.7 fL (80-94); MONOCYTES # (AUTO) 0.1 K/uL (0.8-1.0); MONOCYTES % (AUTO) 1.2 % (1.7-9.3); NEUTROPHILS # (AUTO) 4.7 K/uL (1.8-7.7); PLATELET COUNT (AUTO) 265 K/uL (140-450); RED BLOOD CELL COUNT(AUTO) 3.35 MIL/uL (4.20-5.40); RED CELL DISTRIBUTION WIDTH 18.4 % (11.6-13.7); WHITE BLOOD COUNT (AUTO) 5.5 K/uL (4.8-10.8)
[2022-04-19 12:12] LABS: NEUTROPHILS % (AUTO) 85.5 % (42.2-75.2)
[2022-04-19 12:29] LABS: ALBUMIN 1.9 g/dL (3.4-5.0); ANION GAP 11.7 (8-16); CARBON DIOXIDE 25.6 mmol/L (21-32); CREATININE 0.6 mg/dL (0.6-1.3); POTASSIUM 4.3 mmol/L (3.5-5.1); TOTAL BILIRUBIN 0.4 mg/dL (0.0-1.0)
[2022-04-19] MEDS ORDERED: VENLAFAXINE 37.5 MG TAB PO STA (12:49)
[2022-04-19] MEDS ORDERED: VENLAFAXINE XR 75 MG CAPER PO ONE (12:59)
--- NOTE | 2022-04-19 15:33 | NUR ---
Pt w/c assisted to restroom.
--- NOTE | 2022-04-19 19:15 | NUR ---
Pt report given to SHELBY Okeefe. Transfer of care at this time.
--- NOTE | 2022-04-19 19:34 | NUR ---
New #20g IV placed on left AC using aseptic technique. Flushed 10cc NS and no infiltration noted. Pt has no c/o.
--- NOTE | 2022-04-20 00:33 | NUR ---
Pt resting iwth no s/s of distress. VSS. Bed in lowest position.
--- NOTE | 2022-04-20 08:03 | NUR ---
pt given breakfast tray at this time
[2022-04-20 10:02] LABS: BASOPHILS % (AUTO) 0.9 % (0.0-2.0); EOSINOPHILS % (AUTO) 0.7 % (0.0-4.0); HEMATOCRIT 25.4 % (36-48); HEMOGLOBIN 8.3 g/dL (12.0-16.0); LYMPHOCYTES # (AUTO) 0.5 K/uL (2.5-16.5); MEAN CORPUSCULAR HEMOGLOBIN 26 pg (27-31); MEAN CORPUSCULAR HGB CONC 33 g/dL (33-37); MEAN CORPUSCULAR VOLUME 78.5 fL (80-94); MONOCYTES # (AUTO) 0.2 K/uL (0.8-1.0); MONOCYTES % (AUTO) 4.9 % (1.7-9.3); NEUTROPHILS # (AUTO) 2.5 K/uL (1.8-7.7); NEUTROPHILS % (AUTO) 78.5 % (42.2-75.2); PLATELET COUNT (AUTO) 204 K/uL (140-450); RED BLOOD CELL COUNT(AUTO) 3.24 MIL/uL (4.20-5.40); WHITE BLOOD COUNT (AUTO) 3.2 K/uL (4.8-10.8)
--- NOTE | 2022-04-20 14:19 | NUR ---
OUTREACHED TO FOR CONTRACTED PROVIDERS AND REFERRAL AUTH TO SCHEDULE GI FOLLOW UP APPT, REQUESTED BY PHYSICIAN. SPOKE WITH [facility] OUTPT COORDINATOR, WHO REPORTS REPORTS THEY WILL BE IN CONTACT WITH PT, WITH AUTH AND PROVIDER INFO, TO SCHEDULE FOLLOW UP. ENDORSED TO PT NURSE. FAX SENT TO [phone] REQUESTED BY [facility]. [facility] PHONE NUMBER- [phone] [phone]
[2022-04-20] MEDS ORDERED: VENLAFAXINE 37.5 MG TAB PO STA (14:43)
--- NOTE | 2022-04-20 15:09 | NUR ---
pt ambulated to bathroom at this time, requesting diane newman, left at bedside with ice cream and water.
[2022-04-20] MEDS ORDERED: NACL 0.9% 1,000 ML IV SCH (16:55)
[2022-04-20] MEDS ORDERED: ONDANSETRON 4 MG/2 ML VIAL IVP PRN (16:55)
[2022-04-20] MEDS ORDERED: ACETAMINOPHEN 325 MG TAB PO PRN (16:55)
[2022-04-20] MEDS ORDERED: POTASSIUM CHLORIDE 10 MEQ TABER PO PRN (16:55)
[2022-04-20] MEDS ORDERED: HYDROcodone/APAP 7.5/325 MG 1 TAB PO PRN (16:55)
[2022-04-20] MEDS ORDERED: MAG SULF 2000 MG/WATER PREMIX 50 ML IV PRN (16:55)
[2022-04-20] MEDS ORDERED: DEXTROSE 50% 50 ML SYR IVP PRN (17:05)
[2022-04-20] MEDS ORDERED: INSULIN LISPRO SLIDING SCALE 100 UNITS/ML VIAL SUBQ PRN (17:05)
--- NOTE | 2022-04-20 17:50 | NUR ---
Alexandra [phone] (SISTER) was called, pt requesting to leave AMA, left message to contact us back for transportation
--- NOTE | 2022-04-20 17:53 | NUR ---
Essie [phone] (DAUGHTER) was called, pt requesting to leave AMA, left message to contact us back for transportation
--- NOTE | 2022-04-20 18:00 | NUR ---
Essie [phone] (DAUGHTER), states she is refusing to pick pt up because she is to far and does not want her mom to leave the hospital. explained we are unable to hold her against her will if she is requesting to leave and is a&ox4 and able to make her own decisions. daughter refusing at this time. pt made aware and is setting up transportation. scrub pants given.
--- NOTE | 2022-04-20 18:06 | NUR ---
pt signing AMA at this time, states she would like to go home and make appointment to see oncologist, leonard thompson made aware
[2022-04-20 18:20] VITALS: BP 154/80
--- NOTE | 2022-04-20 18:20 | NUR ---
Patient does not wish to proceed with medical care recommended by leonard thompson. Patient given information related to possible complications, up to and including , which could occur as a result of leaving hospital at this time. Patient verbalizes understanding of risks involved leaving against medical advice. Patient has signed AMA form.
[2022-04-20] MEDS ORDERED: SIMETHICONE PO SCH (21:00)
[2022-04-20] MEDS ORDERED: LOPERAMIDE HCL PO SCH (21:00)
[2022-04-20] MEDS ORDERED: DOCUSATE SODIUM 100 MG GELCAP PO SCH (21:00)
[2022-04-20] MEDS ORDERED: BLOOD GLUCOSE MONITORING 1 DEV DEV FS SCH (21:00)
[2022-04-20] MEDS ORDERED: NON-FORMULARY ITEM (Metformin HCl (Metformin Hcl) 1 TAB) PO SCH (21:00)
[2022-04-21] MEDS ORDERED: metFORMIN 500 MG TAB PO SCH (08:00)
[2022-04-21] MEDS ORDERED: NIACIN 500 MG PO SCH (09:00)
[2022-04-21] MEDS ORDERED: VENLAFAXINE XR 75 MG CAPER PO SCH (09:00)
[2022-04-21] MEDS ORDERED: NON-FORMULARY ITEM (Omeprazole* (Prilosec*) 40 MG) PO SCH (09:00)
[2022-04-21] MEDS ORDERED: lisinopriL 20 MG TAB PO SCH (09:00)
[2022-04-21] MEDS ORDERED: FUROSEMIDE 20 MG TAB PO SCH (09:00)
[2022-04-21] MEDS ORDERED: NON-FORMULARY ITEM (Famotidine* (Pepcid*) 40 MG) PO SCH (09:00)
[2022-04-21] MEDS ORDERED: DIVALPROEX 500 MG TABER PO SCH (09:00)
[2022-04-21] MEDS ORDERED: ATORVASTATIN 20 MG TAB PO SCH (09:00)
[2022-04-21] MEDS ORDERED: NIACIN 500 MG TAB PO SCH (09:00)
[2022-04-21] MEDS ORDERED: PANTOPRAZOLE 40 MG INJ VIAL IVP SCH (09:00)
[2022-04-21] MEDS ORDERED: FAMOTIDINE 20 MG TAB PO SCH (09:00)
== END 2022-04-20 18:05 | disposition left against medical advice (07) | DRG 871 ==
LOC: MED 12:46 → MTU 17:02
PROC: 30233N1 Transfusion of Nonautologous Red Blood Cells into Peripheral Vein, Percutaneous Approach (ICD-10-PCS; principal; 2022-04-20)
DX: A41.9 Sepsis, unspecified organism (principal); E43 Unspecified severe protein-calorie malnutrition; K92.2 Gastrointestinal hemorrhage, unspecified; N39.0 Urinary tract infection, site not specified; D62 Acute posthemorrhagic anemia; C78.6 Secondary malignant neoplasm of retroperitoneum and peritoneum; E78.00 Pure hypercholesterolemia, unspecified; I10 Essential (primary) hypertension; E11.9 Type 2 diabetes mellitus without complications; Z20.822 Contact with and (suspected) exposure to COVID-19; F17.200 Nicotine dependence, unspecified, uncomplicated; Z53.29 Procedure and treatment not carried out because of patient's decision for other reasons; E78.5 Hyperlipidemia, unspecified; E03.9 Hypothyroidism, unspecified; Z83.3 Family history of diabetes mellitus; Z88.2 Allergy status to sulfonamides; Z88.0 Allergy status to penicillin; Z88.8 Allergy status to other drugs, medicaments and biological substances; Z80.3 Family history of malignant neoplasm of breast; Z80.8 Family history of malignant neoplasm of other organs or systems; Z82.3 Family history of stroke; Z82.49 Family history of ischemic heart disease and other diseases of the circulatory system; Z85.09 Personal history of malignant neoplasm of other digestive organs; Z68.22 Body mass index [BMI] 22.0-22.9, adult
CPT/HCPCS: 36415; 36430; 71045; 80053; 81001; 83605; 83880; 84484; 85018; 85025; 85610; 85730; 86886; 86900; 86901; 86920; 87040; 87086; 93005; 96361; 96365; 96375; 99291; C9113; J0696; J1815; J7030; P9016; Q0092